=== PATIENT | male | born 1955 | race Hispanic/Latino ===

== ENCOUNTER → 2017-08-21 | Outpatient (CLI) | payer BC | END | disposition home or self-care (01) | LOC: RAH 13:56 | PROVIDERS: ATTEND Family Medicine | DX: M51.27 Other intervertebral disc displacement, lumbosacral region (principal); M48.07 Spinal stenosis, lumbosacral region; N28.1 Cyst of kidney, acquired | CPT/HCPCS: 72148 ==

== ENCOUNTER → 2017-08-23 | Outpatient (CLI) | payer BC | END | disposition home or self-care (01) | LOC: RAH 12:43 | PROVIDERS: ATTEND Family Medicine | DX: M47.22 Other spondylosis with radiculopathy, cervical region (principal); M50.322 Other cervical disc degeneration at C5-C6 level | CPT/HCPCS: 72141 ==

== ENCOUNTER → 2023-06-24 | Outpatient (CLI) | payer OTHER | END | disposition home or self-care (01) | LOC: RAH 10:55 | PROVIDERS: ATTEND Internal Medicine Cardiovascular Disease | DX: Z13.6 Encounter for screening for cardiovascular disorders (principal); R93.1 Abnormal findings on diagnostic imaging of heart and coronary circulation | CPT/HCPCS: 75571 ==